=== PATIENT | male | born 1985 | race Hispanic/Latino ===

== ENCOUNTER 2017-09-11 18:45 | Emergency (ER) | payer SELFPAY ==
[2017-09-11 19:01] VITALS: BP 134/68
[2017-09-11 19:24] LABS: Amorphous Crystals,Urine 1+; Bacteria,Urine 3+ /HPF (Negative); Bilirubin,Urine SM (Negative); Blood,Urine SM (Negative); Color,Urine Amber (Yellow); Mucus,Urine 2+ /HPF; Nitrite,Urine POS (Negative); Urobilinogen,Urine < 2.0 mg/dL (<2.0)
[2017-09-11 19:28] LABS: Basophils # (Auto) 0.1 K/mm3 (0.0-0.1); Basophils % (Auto) 0.6 % (0.0-1.8); Eosinophils # (Auto) 0.6 K/mm3 (0.0-0.4); Eosinophils % (Auto) 3.6 % (0.0-4.3); Hematocrit 44.9 % (35.5-45.6); Hemoglobin 14.8 gm/dl (11.8-15.2); Lymphocytes # (Auto) 1.7 K/mm3 (1.2-5.4); Lymphocytes % (Auto) 10.9 % (13.4-35.0); Mean Corpuscular HGB Conc 33 % (32-34); Mean Corpuscular Hemoglobin 29 pg (28-32); Mean Corpuscular Volume 88 fl (84-94); Monocytes # (Auto) 0.8 K/mm3 (0.0-0.8); Platelet Count 250 K/mm3 (140-440)
[2017-09-11 19:32] LABS: Protein,Urine >500 mg/dL (Negative)
[2017-09-11 19:46] LABS: Alanine Aminotransferase 26 units/L (7-56); Albumin 4.3 g/dL (3.9-5); BUN/Creatinine Ratio 16; Blood Urea Nitrogen 16 mg/dL (9-20); Calcium 9.2 mg/dL (8.4-10.2); Hemolysis Index 42
[2017-09-11 19:56] LABS: Ictotest,Urine Negative (Negative)
== END 2017-09-11 21:50 | disposition left against medical advice (07) ==
LOC: ED 18:45
DX: Z53.21 Procedure and treatment not carried out due to patient leaving prior to being seen by health care provider (principal)
CPT/HCPCS: 36415; 80053; 81001; 85025

== ENCOUNTER 2019-06-05 16:04 | Emergency (ER) | payer SELFPAY ==
--- NOTE | 2019-06-05 16:49 | Emergency Department Report ---
Blank Doc - Documentation Documentation: 34-year-old male that presents with right forearm pain. This initial assessment/diagnostic orders/clinical plan/treatment(s) is/are subject to change based on patient's health status, clinical progression and re- assessment by fellow clinical providers in the ED. Further treatment and workup at subsequent clinical providers discretion. Patient/guardians urged not to elope from the ED as their condition may be serious if not clinically assessed and managed. Initial orders include: 1- Patient sent to [facility] for further evaluation and treatment 2- xrays
[2019-06-05 16:50] VITALS: BP 137/78
--- NOTE | 2019-06-05 18:00 | XRay Report ---
RIGHT FOREARM 2 VIEWS INDICATION / CLINICAL INFORMATION: Right forearm pain for 3 days. COMPARISON: None available. FINDINGS: BONES / JOINT(S): There is no evidence of fracture, subluxation or destructive lesion. No significant arthritis. SOFT TISSUES: No significant abnormality. ADDITIONAL FINDINGS: None. IMPRESSION: Negative study. Signer Name: Nigel Sharma MD Signed: 06/05/2019 5:55 PM Workstation Name: [facility] [id number]
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
== END 2019-06-05 19:07 | disposition home or self-care (01) ==
LOC: ED 16:04
DX: M79.632 Pain in left forearm (principal); J45.909 Unspecified asthma, uncomplicated; F17.200 Nicotine dependence, unspecified, uncomplicated; F12.10 Cannabis abuse, uncomplicated; Z98.890 Other specified postprocedural states; Z88.1 Allergy status to other antibiotic agents; Z88.0 Allergy status to penicillin

== ENCOUNTER 2022-04-14 23:18 | Emergency (ER) | payer SELFPAY ==
[2022-04-14 23:25] VITALS: BP 129/83
--- NOTE | 2022-04-15 00:03 | XRay Report ---
RIGHT SHOULDER, 3 VIEWS INDICATION / CLINICAL INFORMATION: PAIN. Painful right shoulder for 2 months. COMPARISON: None available. FINDINGS: No fracture or dislocation. No significant degenerative change. Visualized right ribs are normal. No soft tissue abnormality. IMPRESSION: No significant osseous abnormality involving the right shoulder. Signer Name: Selena Kumar MD Signed: 04/14/2022 11:58 PM Workstation Name: [id number]
== END 2022-04-14 23:59 | disposition left against medical advice (07) ==
LOC: ED 23:18
DX: M25.519 Pain in unspecified shoulder (principal); Z53.21 Procedure and treatment not carried out due to patient leaving prior to being seen by health care provider